=== PATIENT | male | born 1935 | race Two or more races ===

== ENCOUNTER 2018-09-19 16:26 | Inpatient (IN) | payer MEDICARE, MEDICAID ==
[~2018-09-19] VITALS: Ht 167.6 cm; Wt 48.2 kg
[2018-09-19 18:51] LABS: CHLORIDE 112 mEq/L (98-107)
[2018-09-19 18:54] LABS: BASOPHILS % 0.5 % (0.0-2.0); EOSINOPHILS % 0.2 % (0.0-5.0); HEMATOCRIT. 22.7 % (42.0-52.0); MEAN CORPUSCULAR HEMOGLOBIN 16.5 pg (28.0-32.0); MEAN CORPUSCULAR VOLUME 61.6 fL (80.0-94.0); MEAN PLATELET VOLUME 7.9 fl (7.4-10.4); MONOCYTES % 10.1 % (2.0-8.0); NEUTROPHILS % 78.2 % (40.0-76.0); PLATELET 714 x1000/uL (130-400); RED BLOOD CELL COUNT 3.69 mill/uL (4.7-6.1); RED CELL DISTRIBUTION WIDTH 21.3 % (11.6-14.6)
[2018-09-19 18:55] LABS: INR 1.2; PROTHROMBIN TIME 12.5 sec (9.1-11.1)
[2018-09-19] MEDS ORDERED: ACETAMINOPHEN 325MG TABLET PO PRN (19:15)
[2018-09-19] MEDS ORDERED: LEVETIRACETAM 500MG PREMIX 100 ML IV ONE (19:15)
[2018-09-19] MEDS ORDERED: HYDROCODONE/ACETAMINOPHEN 5/325MG TABLET PO PRN (19:15)
[2018-09-19] MEDS ORDERED: DOCUSATE SODIUM 100MG CAPSULE PO PRN (19:15)
[2018-09-19] MEDS ORDERED: IPRATROPIUM/ALBUTEROL 0.5-3(2.5)MG/3ML NEB INH PRN (19:15)
[2018-09-19] MEDS ORDERED: CLONIDINE 0.1MG TABLET PO PRN (19:15)
[2018-09-19] MEDS ORDERED: ONDANSETRON HCL 4MG/2ML INJ IV PRN (19:15)
[2018-09-19 20:05] LABS: PLATELET ESTIMATE INCREASED
[2018-09-20] VITALS (24 sets, daily range): BP systolic 111–146; BP diastolic 55–78
[2018-09-20 00:26] LABS: CHLORIDE 113 mEq/L (98-107)
[2018-09-20 00:33] LABS: CREATINE KINASE 148 IU/L (39-308)
[2018-09-20 00:36] LABS: CREATINE KINASE MB FRACTION 3.7 ng/mL (0.5-3.6)
[2018-09-20 06:10] LABS: CREATINE KINASE MB FRACTION 2.9 ng/mL (0.5-3.6)
[2018-09-20] MEDS: DEXAMETHASONE 4MG/ML 1ML VIAL IV SCH ×2 (09:49→18:26)
[2018-09-20] MEDS: DEXT 5%/0.45% NACL 1000ML 1,000 ML IV SCH ×2 (12:44→18:26)
[2018-09-20 13:30] LABS: CLARITY URINE CLEAR (CLEAR); COLOR URINE DARK YELLOW (YELLOW); KETONES URINE NEGATIVE (NEGATIVE); LEUKOCYTE ESTERASE URINE 1+ (NEGATIVE); NITRITE URINE NEGATIVE (NEGATIVE); OCCULT BLOOD URINE NEGATIVE (NEGATIVE); PROTEIN URINE NEGATIVE (NEGATIVE); SPECIFIC GRAVITY URINE 1.022 (1.005-1.030)
[2018-09-20] MEDS ORDERED: NICARDIPINE 100 MG in SODIUM CHLORIDE 0.9% 60 ML IV PRN (15:15)
[2018-09-20 15:50] LABS: FOLIC ACID (FOLATE) SERUM >20 ng/mL ng/mL (>5.38)
[2018-09-20 15:59] LABS: FERRITIN 20 ng/mL (22-322)
[2018-09-20] MEDS ORDERED: LEVOFLOXACIN 750MG PREMIX 150 ML IV SCH (16:00)
[2018-09-20 16:01] LABS: VITAMIN B12 SERUM 1158 pg/mL (211-911)
[2018-09-20 16:30] LABS: CHLORIDE 115 mEq/L (98-107)
[2018-09-20] MEDS ORDERED: LEVOFLOXACIN 500MG PREMIX 100 ML IV NR (18:00)
[2018-09-20 21:25] LABS: HEMATOCRIT 26.7 % (42.0-52.0); HEMOGLOBIN 7.9 g/dL (14.0-18.0)
[2018-09-20] MEDS: LEVETIRACETAM 500 MG in SODIUM CHLORIDE 0.9% 100 ML IV SCH (21:33)
[2018-09-21] VITALS (32 sets, daily range): BP systolic 103–132; BP diastolic 52–78
[2018-09-21] MEDS: DEXAMETHASONE 4MG/ML 1ML VIAL IV SCH ×4 (02:23→23:20)
[2018-09-21 05:35] LABS: HEMATOCRIT. 25.6 % (42.0-52.0); HEMOGLOBIN. 7.6 g/dL (14.0-18.0); MEAN CORPUSCULAR HEMOGLOBIN 19.9 pg (28.0-32.0); MEAN CORPUSCULAR VOLUME 66.6 fL (80.0-94.0); MEAN PLATELET VOLUME 7.9 fl (7.4-10.4); PLATELET 490 x1000/uL (130-400); RED BLOOD CELL COUNT 3.84 mill/uL (4.7-6.1); RED CELL DISTRIBUTION WIDTH 26.6 % (11.6-14.6)
[2018-09-21 05:51] LABS: CHLORIDE 112 mEq/L (98-107)
[2018-09-21] MEDS ORDERED: ROCURONIUM BROMIDE 10MG/ML VIAL 5ML IV ONE (06:44)
[2018-09-21] MEDS ORDERED: PROPOFOL 200MG/20ML VIAL IV ONE (06:44)
[2018-09-21] MEDS ORDERED: FENTANYL CITRATE/PF 50MCG/ML 2ML VIAL ONE (06:44)
[2018-09-21] MEDS ORDERED: GELATIN SPONGE,ABSORBABLE 12-7MM SPONGE ONE (06:46)
[2018-09-21] MEDS ORDERED: POVIDONE-IODINE OINT 28.4GM TOP ONE (06:46)
[2018-09-21] MEDS ORDERED: BACITRACIN 15GM TUBE TOP ONE (06:47)
[2018-09-21] MEDS ORDERED: THROMBIN (BOVINE) 5000 UNITS/VIAL TOP ONE (06:47)
[2018-09-21] MEDS ORDERED: LIDOCAINE HCL/EPINEPHRINE 1%-EPI 1:100,000 20 ML VIAL ONE (06:47)
[2018-09-21] MEDS ORDERED: BACITRACIN 50,000 UNITS/VIAL ONE (06:48)
[2018-09-21] MEDS ORDERED: MANNITOL 20% 0 ML IV ONE (07:04)
[2018-09-21] MEDS ORDERED: LIDOCAINE HCL/PF 1% 10 MG/ML 5ML VIAL ONE (08:52)
[2018-09-21] MEDS ORDERED: EPHEDRINE SULFATE 50MG/ML VIAL ONE (08:52)
[2018-09-21] MEDS ORDERED: CEFAZOLIN SODIUM 1000MG/VIAL ONE (08:52)
[2018-09-21] MEDS ORDERED: DEXAMETHASONE 4MG/ML 1ML VIAL ONE (08:52)
[2018-09-21] MEDS ORDERED: GLYCOPYRROLATE 0.2 MG/ML 2ML VIAL ONE (08:58)
[2018-09-21] MEDS: LEVETIRACETAM 500 MG in SODIUM CHLORIDE 0.9% 100 ML IV SCH ×2 (09:00→20:38)
[2018-09-21] MEDS ORDERED: NITROPRUSSIDE 50 MG in SODIUM CHLORIDE 0.9% 248 ML IV PRN (09:45)
[2018-09-21] MEDS: DEXT 5%/0.45% NACL 1000ML 1,000 ML IV SCH ×2 (10:00→23:23)
[2018-09-21 10:38] LABS: NUCLEATED RED BLOOD CELLS 3 /100 WBC
[2018-09-21 10:39] LABS: PLATELET ESTIMATE INCREASED
[2018-09-21] MEDS: PANTOPRAZOLE SODIUM 40 MG/VIAL IV SCH (12:43)
[2018-09-21] MEDS: MORPHINE SULFATE 4 MG/ML CPJ (NOT FOR IM USE) IV PRN ×2 (13:04→20:33)
[2018-09-21] MEDS ORDERED: CEFAZOLIN SODIUM 1000MG/VIAL IV SCH (14:00)
[2018-09-21] MEDS: CEFAZOLIN 1000MG PREMIX 50 ML IV SCH ×2 (17:52→21:14)
[2018-09-21] MEDS: LEVOFLOXACIN 250MG PREMIX 50 ML IV SCH (18:26)
[2018-09-21 20:06] LABS: HEMOGLOBIN. 6.1 g/dL (14.0-18.0)
[2018-09-22] VITALS (50 sets, daily range): BP systolic 92–142; BP diastolic 48–79
[2018-09-22] MEDS: DEXAMETHASONE 4MG/ML 1ML VIAL IV SCH ×2 (05:12→12:30)
[2018-09-22] MEDS: CEFAZOLIN 1000MG PREMIX 50 ML IV SCH ×2 (05:12→13:35)
[2018-09-22 05:42] LABS: CHLORIDE 110 mEq/L (98-107)
[2018-09-22 05:58] LABS: HEMATOCRIT. 23.5 % (42.0-52.0); MEAN CORPUSCULAR HEMOGLOBIN 19.8 pg (28.0-32.0); MEAN CORPUSCULAR VOLUME 66.8 fL (80.0-94.0); MEAN PLATELET VOLUME 8.1 fl (7.4-10.4); PLATELET 435 x1000/uL (130-400); RED BLOOD CELL COUNT 3.52 mill/uL (4.7-6.1)
[2018-09-22] MEDS: MORPHINE SULFATE 4 MG/ML CPJ (NOT FOR IM USE) IV PRN ×2 (06:38→19:03)
[2018-09-22 07:18] LABS: HEMATOCRIT 24.5 % (42.0-52.0); HEMOGLOBIN 7.2 g/dL (14.0-18.0)
[2018-09-22] MEDS ORDERED: POTASSIUM CHLORIDE 20MEQ/PACKET PO NR (09:00)
[2018-09-22] MEDS: PANTOPRAZOLE SODIUM 40 MG/VIAL IV SCH (09:17)
[2018-09-22] MEDS: LEVETIRACETAM 500 MG in SODIUM CHLORIDE 0.9% 100 ML IV SCH ×2 (09:28→20:43)
[2018-09-22 11:18] LABS: PLATELET ESTIMATE INCREASED
[2018-09-22] MEDS: LEVOFLOXACIN 250MG PREMIX 50 ML IV SCH (17:34)
[2018-09-23] VITALS (42 sets, daily range): BP systolic 114–149; BP diastolic 53–79
[2018-09-23] MEDS: MORPHINE SULFATE 4 MG/ML CPJ (NOT FOR IM USE) IV PRN (01:36)
[2018-09-23] MEDS: PANTOPRAZOLE SODIUM 40 MG/VIAL IV SCH (09:43)
[2018-09-23] MEDS: LEVETIRACETAM 500 MG in SODIUM CHLORIDE 0.9% 100 ML IV SCH ×2 (09:44→20:47)
[2018-09-23 12:55] LABS: HEMATOCRIT. 26.2 % (42.0-52.0); HEMOGLOBIN. 7.8 g/dL (14.0-18.0); MEAN CORPUSCULAR HEMOGLOBIN 20.2 pg (28.0-32.0); MEAN CORPUSCULAR VOLUME 68.3 fL (80.0-94.0); MEAN PLATELET VOLUME 8.5 fl (7.4-10.4); PLATELET 377 x1000/uL (130-400); RED BLOOD CELL COUNT 3.84 mill/uL (4.7-6.1); RED CELL DISTRIBUTION WIDTH 28.4 % (11.6-14.6)
[2018-09-23 13:01] LABS: CHLORIDE 108 mEq/L (98-107)
[2018-09-23 13:07] LABS: INR 1.2; PROTHROMBIN TIME 12.5 sec (9.1-11.1)
[2018-09-23 13:08] LABS: LDL CHOLESTEROL 48 mg/dL (5-100)
[2018-09-23 15:24] LABS: PLATELET ESTIMATE NORMAL
[2018-09-23] MEDS: LEVOFLOXACIN 250MG PREMIX 50 ML IV SCH (17:47)
[2018-09-24] VITALS (11 sets, daily range): BP systolic 105–124; BP diastolic 57–73
[2018-09-24] MEDS: LEVETIRACETAM 500 MG in SODIUM CHLORIDE 0.9% 100 ML IV SCH ×2 (09:14→21:50)
[2018-09-24] MEDS: PANTOPRAZOLE SODIUM 40 MG/VIAL IV SCH (09:14)
[2018-09-24] MEDS: MORPHINE SULFATE 4 MG/ML CPJ (NOT FOR IM USE) IV PRN ×3 (09:45→21:51)
[2018-09-24] MEDS: LEVOFLOXACIN 250MG PREMIX 50 ML IV SCH (17:23)
[2018-09-25] VITALS: BP 117/73
[2018-09-25 04:00] VITALS: BP 140/72
[2018-09-25 08:00] VITALS: BP 110/53
[2018-09-25] MEDS: PANTOPRAZOLE SODIUM 40 MG/VIAL IV SCH (08:04)
[2018-09-25] MEDS: MORPHINE SULFATE 4 MG/ML CPJ (NOT FOR IM USE) IV PRN ×2 (08:04→14:51)
[2018-09-25] MEDS: LEVETIRACETAM 500 MG in SODIUM CHLORIDE 0.9% 100 ML IV SCH (08:44)
[2018-09-25 12:00] VITALS: BP 113/54
[2018-09-25 15:06] LABS: CHLORIDE 106 mEq/L (98-107)
[2018-09-25 15:12] LABS: HEMATOCRIT 28.8 % (42.0-52.0); HEMOGLOBIN 8.6 g/dL (14.0-18.0); MEAN CORPUSCULAR HEMOGLOBIN 20.4 pg (28.0-32.0); MEAN CORPUSCULAR VOLUME 68.1 fL (80.0-94.0); PLATELET 366 x1000/uL (130-400); RED BLOOD CELL COUNT 4.23 mill/uL (4.7-6.1); RED CELL DISTRIBUTION WIDTH 30.2 % (11.6-14.6)
[2018-09-25 15:51] VITALS: BP 113/54
[2018-09-25 16:00] VITALS: BP 117/69
[2018-09-25] MEDS: LEVOFLOXACIN 250MG PREMIX 50 ML IV SCH (17:42)
== END 2018-09-25 19:25 | disposition hospice, home (50) | DRG 710 ==
LOC: ER 16:26 → 5EST 18:51 → EDBEDREQTM 18:53 → EDBEDREQSVC 18:53 → EDBEDREQ 18:53 → CANRESERV 20:40 → ENRESERV 20:40 → EDBEDREQSVC 22:45 → ENRESERV 22:52 → MICUNO 09-21 09:32 → 7WST 09-24 11:55
PROVIDERS: ADMIT Internal Medicine; ATTEND Internal Medicine
PROC: 30233N1 Transfusion of Nonautologous Red Blood Cells into Peripheral Vein, Percutaneous Approach (ICD-10-PCS; 2018-09-20)
PROC: 0NU10JZ Supplement Frontal Bone with Synthetic Substitute, Open Approach (ICD-10-PCS; principal; 2018-09-21)
PROC: 00C40ZZ Extirpation of Matter from Intracranial Subdural Space, Open Approach (ICD-10-PCS; 2018-09-21)
PROC: 00U207Z Supplement Dura Mater with Autologous Tissue Substitute, Open Approach (ICD-10-PCS; 2018-09-21)
DX: A40.1 Sepsis due to streptococcus, group B (principal); I96 Gangrene, not elsewhere classified; L89.159 Pressure ulcer of sacral region, unspecified stage; G92 Toxic encephalopathy; C22.9 Malignant neoplasm of liver, not specified as primary or secondary; L89.329 Pressure ulcer of left buttock, unspecified stage; L89.319 Pressure ulcer of right buttock, unspecified stage; S06.5X9A Traumatic subdural hemorrhage with loss of consciousness of unspecified duration, initial encounter; S72.012A Unspecified intracapsular fracture of left femur, initial encounter for closed fracture; R64 Cachexia; F03.90 Unspecified dementia, unspecified severity, without behavioral disturbance, psychotic disturbance, mood disturbance, and anxiety; R04.0 Epistaxis; N39.0 Urinary tract infection, site not specified; I10 Essential (primary) hypertension; D50.9 Iron deficiency anemia, unspecified; L97.929 Non-pressure chronic ulcer of unspecified part of left lower leg with unspecified severity; N40.0 Benign prostatic hyperplasia without lower urinary tract symptoms; R29.6 Repeated falls; Z51.5 Encounter for palliative care; Z66 Do not resuscitate; D47.3 Essential (hemorrhagic) thrombocythemia; K74.60 Unspecified cirrhosis of liver; Z68.1 Body mass index [BMI] 19.9 or less, adult; Z85.05 Personal history of malignant neoplasm of liver
CPT/HCPCS: 36415; 71045; 72192; 73522; 73700; 80048; 82140; 82550; 82553; 82607; 82728; 82746; 83036; 83540; 83550; 83721; 84134; 84145; 84439; 84443; 84481; 84484; 85014; 85018; 85027; 86850; 86900; 86920; 87070; 87075; 87077; 92610; 93005; 94640; 96365; 99291; C1713; C1758; C1893; C9113; J0690; J1100; J1953; J1956; J2270; J2704; J3010; J3490; J7040; J7050; J7620; P9016